=== PATIENT | female | born 1945 | race Caucasian/White ===

== ENCOUNTER 2021-01-21 10:21 | Inpatient (IN) | payer OTHER ==
[~2021-01-21] VITALS: Ht 154.9 cm; Wt 86.6 kg
[2021-01-21 10:21] VITALS: BP 204/76
[2021-01-21 11:30] LABS: ABSOLUTE NEUTROPHILS 5.6 thou/uL (1.4-8.2); BASOPHILS 0.5 % (0.0-2.0); EOSINOPHILS 3.7 % (0.0-3.0); HEMATOCRIT 43.3 % (37.0-47.0); HEMOGLOBIN 14.1 gm/dL (12.0-15.0); LYMPHOCYTES 20.4 % (24.0-44.0); MCH 28.9 pg (26.0-34.0); MCHC 32.5 g/dL (28.0-37.0); MONOCYTES 9.6 % (1.0-8.0); PLATELET COUNT 254 thou/uL (150-400); POLYS 65.8 % (36.0-66.0); RBC 4.86 mil/uL (4.20-5.00); RDW 13.6 % (10.5-14.5); WBC 8.4 thou/uL (4.0-11.0)
[2021-01-21 11:42] LABS: CALCIUM 9.2 mg/dL (8.5-10.1); CREATININE 0.7 mg/dL (0.6-1.0); POTASSIUM 3.9 mmol/L (3.5-5.1)
[2021-01-21 11:53] LABS: ALBUMIN 3.6 g/dL (3.4-5.0); TOTAL BILIRUBIN 1.3 mg/dL (0.2-1.0); TOTAL PROTEIN 6.9 g/dL (6.4-8.2)
[2021-01-21] MEDS ORDERED: ATENOLOL 50MG T50 M1 PO (15:39)
[2021-01-21] MEDS ORDERED: IRBESARTAN-HCT1 EAC1 PO (15:39)
[2021-01-21] MEDS ORDERED: LOMOTIL TABLET1 EACH PO (15:40)
[2021-01-21] MEDS ORDERED: ELIQUIS5 MG PO (15:40)
[2021-01-21] MEDS ORDERED: AMITRIPTYLINE H25 M2 PO (15:41)
[2021-01-21 15:49] LABS: URINE BILIRUBIN NEGATIVE (Negative); URINE BLOOD TRACE (Negative); URINE CLARITY CLEAR; URINE COLOR YELLOW; URINE GLUCOSE-RANDOM* NEGATIVE (Negative); URINE KETONES NEGATIVE (Negative); URINE LEUKOCYTES-REFLEX NEGATIVE (Negative); URINE NITRITE-REFLEX NEGATIVE (Negative); URINE PROTEIN (DIPSTICK) NEGATIVE (Negative); URINE SPECIFIC GRAVITY <= 1.005 (1.005-1.035); URINE UROBILINOGEN 0.2 E.U./dl (0.2-1.0)
[2021-01-22 05:36] LABS: ANION GAP 10 mmol/L (7-16); BUN 16 mg/dL (7-18); CALCIUM 8.7 mg/dL (8.5-10.1); CHLORIDE 97 mmol/L (98-107); CHOLESTEROL 168 mg/dL (<200); CO2 29 mmol/L (21-32); CREATININE 0.8 mg/dL (0.6-1.0); GLUCOSE 138 mg/dL (74-106); HDL CHOLESTEROL 46 mg/dL (>40); LDL CHOLESTEROL 98 mg/dL (<100); POTASSIUM 3.8 mmol/L (3.5-5.1); SODIUM 136 mmol/L (136-145); TC:HDL 3.7 Ratio (Not establshd); TRIGLYCERIDE 121 mg/dL (<150); VLDL 24 mg/dL (<40)
[2021-01-22 05:57] LABS: SERUM ASSESSMENT Clear
[2021-01-22 07:05] VITALS: BP 104/50; BP 156/79
--- NOTE | 2021-01-22 08:08 | EKG ---
[address] [address] ELECTROCARDIOGRAM REPORT Name: ROMÁN ACEVEDO Room #: 170-1 ADM IN M.R.#: [id number] Admission: 01/21/21 Attend Phys: Hamilton Lopez MD Discharge: Date of : 47 Report #: [id number] [facility] ED Test Date: 2021-01-21 Test Time: 10:31:32 Pat Name: ROMÁN ACEVEDO Department: Room: 170 Gender: F [employer]ic: : 1945 Requested By: Eddie Taveras Order Number: [id number] MD: Isidro Costa Measurements Intervals [place] Rate: 57 P: [place]: QRS: 24 QRSD: 89 T: 43 QT: 439 QTc: 428 Interpretive Statements Atrial fibrillation Poor R wave progression No previous ECG available for comparison Electronically Signed On 01-22-2021 8:08:34 CDT by Isidro Costa [email or web address] <ELECTRONICALLY SIGNED> By: Isidro Costa MD, [facility] 01/22/21 0808 1031 1031 Isidro Costa MD, FAC /EPI
[2021-01-22] MEDS ORDERED: ATENOLOL 25MG T25 M1 PO (08:57)
[2021-01-22] MEDS ORDERED: LASIX 40 MG TAB40 M1 PO (08:59)
[2021-01-22] MEDS ORDERED: BENICAR40 MG PO (08:59)
[2021-01-22 09:10] LABS: MAGNESIUM 1.9 mg/dL (1.8-2.4)
--- NOTE | 2021-01-22 09:58 | 2DMMODE ---
[facility] [place] [address] 2 D/M-MODE ECHOCARDIOGRAM Name: ROMÁN ACEVEDO Room #: 170-1 ADM IN M.R.#: [id number] Admission: 01/21/21 Attend Phys: Hamilton Lopez MD Discharge: Date of : 47 Report #: [id number] THIS REPORT FOR: cc: Hamilton Lopez MD, Neal A. MD Park, Jin S. MD ~ APPROVED REPORT Study performed: 01/22/2021 09:13:10 EXAM: Comprehensive 2D, Doppler, and color-flow Echocardiogram Patient Location: ER Status: routine BSA: 1.85 HR: 53 bpm BP: 204/75 mmHg Rhythm: Atrial Fibrillation Other Information Study Quality: Good Indications Hypertensive urgency. Hx: Permanent Afib, mild CAD. 2D Dimensions RVDd: 33.71 mm IVSd: 10.02 (7-11mm) LVOT Diam: 19.30 (18-24mm) LVDd: 43.34 mm PWd: 9.54 (7-11mm) LVDs: 29.03 (25-40mm) Left Atrium: 33.91 (27-40mm) Aortic Root: 31.78 mm Volumes Left Atrial Volume (Systole) Single Plane 4CH: 58.96 mL Single Plane 2CH: 59.00 mL LA ESV Index: 34.00 mL/m2 Aortic Valve AoV Peak Curt.: 1.23 m/s AO Peak Gr.: 6.06 mmHg LVOT Max P.51 mmHg LVOT Max V: 0.79 m/s [facility] [address] [place] [address] 2 D/M-MODE ECHOCARDIOGRAM Name: ROMÁN ACEVEDO Room #: 170-1 ADM IN M.R.#: [id number] Admission: 01/21/21 Attend Phys: Hamilton Lopez, Discharge: Date of : 47 Report #: [id number] Vmax: 1.88 cm2 Mitral Valve MV Decel. Time: 262.89 ms Pulmonary Valve PV Peak Curt.: 0.66 m/s PV Peak Gr.: 1.76 mmHg Tricuspid Valve TR Peak Curt.: 2.49 m/s RAP Estimate: 5.00 mmHg TR Peak Gr.: 25.00 mmHg PA Pressure: 30.00 mmHg Left Ventricle The left ventricle is normal size. There is normal LV segmental wall motion. Mild basal septal hypertrophy is present. Left ventricular systolic function is normal. LVEF is 55-60%. This study is not technically sufficient to allow evaluation of the LV diastolic function due to atrial fibrillation. Right Ventricle The right ventricle is normal size. The right ventricular systolic function is normal. Atria Mild biatrial enlargement. Aortic Valve Aortic valve is mildly calcified. No aortic regurgitation is present. There is no aortic valvular stenosis. Mitral Valve Mitral valve leaflets are mildly thickened. Mild mitral annular calcification. Mild mitral regurgitation. No evidence of mitral valve stenosis. Tricuspid Valve The tricuspid valve is normal in structure. Trace tricuspid regurgitation. Estimated PAP is 30mmHg. Pulmonic Valve The pulmonary valve is normal in structure. There is no pulmonic valvular regurgitation. Great Vessels The aortic root is normal in size. Ascending aorta is not well [facility] [address] [place] [address] 2 D/M-MODE ECHOCARDIOGRAM Name: ROMÁN ACEVEDO Room #: 170-1 ADM IN ..#: [id number] Admission: 01/21/21 Attend Phys: Hamilton Lopez, Discharge: Date of : 47 Report #: [id number] visualized. IVC is normal in size and collapses >50% with inspiration. Pericardium There is no pericardial effusion. <Conclusion> The left ventricle is normal size. Left ventricular systolic function is normal. The right ventricle is normal size. Mild biatrial enlargement. Aortic valve is mildly calcified. Mild mitral regurgitation. Trace tricuspid regurgitation. Estimated PAP is 30mmHg. <ELECTRONICALLY SIGNED> By: Joshua Matthews MD 01/22/2158 7 Joshua Matthews MD /INF
[2021-01-22 12:12] VITALS: BP 129/50
== END 2021-01-22 12:12 | disposition home or self-care (01) | DRG 304 ==
LOC: ER 10:21 → EROBS 15:44
PROVIDERS: Emergency Medicine; Nurse Practitioner; ADMIT Family Medicine; ATTEND Family Medicine
DX: I16.0 Hypertensive urgency (principal); J81.0 Acute pulmonary edema; I48.21 Permanent atrial fibrillation; I10 Essential (primary) hypertension; I25.10 Atherosclerotic heart disease of native coronary artery without angina pectoris; E87.70 Fluid overload, unspecified; Z20.822 Contact with and (suspected) exposure to COVID-19; Z79.899 Other long term (current) drug therapy

== ENCOUNTER → 2021-01-30 | Outpatient (CLI) | payer OTHER ==
[~2021-01-30] MED LIST: AMITRIPTYLINE H25 M2 PO; ATENOLOL 25MG T25 M1 PO; ATENOLOL 50MG T50 M1 PO; BENICAR40 MG PO; ELIQUIS5 MG PO; IRBESARTAN-HCT1 EAC1 PO; LASIX 40 MG TAB40 M1 PO; LOMOTIL TABLET1 EACH PO
== END ==
LOC: RAD 09:35
PROVIDERS: ATTEND Nurse Practitioner
DX: J98.4 Other disorders of lung (principal); J84.10 Pulmonary fibrosis, unspecified; R05 Cough

== ENCOUNTER → 2021-02-20 | Outpatient (CLI) | payer OTHER | LOC: SJCVCIMAG 07:38 | PROVIDERS: ATTEND Internal Medicine | DX: I70.1 Atherosclerosis of renal artery (principal); I10 Essential (primary) hypertension ==